=== PATIENT | female | born 2000 | race Caucasian/White ===

== ENCOUNTER 2022-04-22 21:16 | Inpatient (IN) | payer BC ==
[2022-04-22] MEDS ORDERED: Ketorolac Tromethamine 30 MG/ML VIAL ONE (21:58)
[2022-04-22] MEDS ORDERED: Morphine 4 MG/ML VIAL ONE (21:58)
[2022-04-22] MEDS ORDERED: Ondansetron PF 4 MG/2 ML Vial ONE (21:59)
[2022-04-22 22:13] LABS: Bilirubin Neg (Negative); Blood, Urine 50 (Negative); Clarity Cloudy (Clear); Glucose, Urine (Dipstick) Normal (Negative); Ketone, Urine 15 mg/dL (Negative); Leukocyte 100 (Negative); Nitrite Negative (Negative); Protein, Urine (Dipstick) Negative (Neg-Trace); Specific Gravity, Urine 1.015 (1.005-1.030); Urobilinogen Normal mg/dL (Less than 2)
[2022-04-22 22:24] LABS: Bacteria/HPF 2+ HPF (None Seen); RBC/HPF 21-50 HPF (0-3); Renal Epithelial 0-3 HPF (None Seen)
[2022-04-22] MEDS ORDERED: Guaifenesin DM 100-10/5 ML UDCUP PO PRN (23:08)
[2022-04-22] MEDS ORDERED: Acetaminophen 325 MG TAB PO PRN (23:08)
[2022-04-22] MEDS ORDERED: Calcium Carbonate 500 MG ChewTAB PO PRN (23:08)
[2022-04-22] MEDS ORDERED: Zolpidem Tartrate 5 MG TAB PO PRN (23:08)
[2022-04-22] MEDS ORDERED: Senokot S 8.6-50 MG TAB PO PRN (23:08)
[2022-04-22] MEDS ORDERED: HYDROcodone/Acetaminophen 5/325 mg Tablet PO PRN (23:08)
[2022-04-22 23:29] LABS: Anion Gap 12 mmol/L (10-20); BUN (Urea Nitrogen) 11 mg/dL (7.0-18.7); Calc. Creatinine Clearance 0 mL/min (70-130); Calcium 8.8 mg/dL (7.8-10.44); Carbon Dioxide 23 mmol/L (22-29); Chloride 105 mmol/L (98-107); Estimated GFR 91; Glucose 89 mg/dL (70-105); Potassium 3.7 mmol/L (3.5-5.1); Sodium 136 mmol/L (136-145)
[2022-04-23 01:22] VITALS: BMI 25.7
[2022-04-23] MEDS ORDERED: Potassium Chloride 20 MEQ TAB PO SCH (01:30)
[2022-04-23] MEDS ORDERED: Famotidine/PF 20 mg/2ml Vial SLOW IVP SCH ×2 (01:30→09:00)
[2022-04-23] MEDS ORDERED: Lactated Ringer's 1,000 ML IV SCH (01:30)
[2022-04-23] MEDS ORDERED: Potassium Bicarbonate/Cit Ac 20 MEQ TAB PO SCH (02:00)
[2022-04-23] MEDS: Lactated Ringer's 1,000 ML IV SCH ×4 (02:12→20:50)
[2022-04-23 03:09] LABS: SARS-CoV-2 NAA Rapid Test Not Detected (NotDetected)
[2022-04-23] MEDS: Morphine 2 MG/ML VIAL SLOW IVP PRN ×3 (04:31→20:42)
[2022-04-23] MEDS: Ondansetron PF 4 MG/2 ML Vial IVP PRN ×3 (04:42→22:24)
[2022-04-23 05:06] LABS: #Eosinphils 0.1 10x3/uL (0.0-0.5); #Monocytes 0.7 10x3/uL (0.0-1.1); #Neutrophils 3.8 10x3/uL (1.5-8.4); %Basophils 0.3 % (0.0-2.0); %Eosinophils 1.3 % (0.0-6.0); %Lymphocytes 23.6 % (18.0-47.0); %Monocytes 10.9 % (0.0-10.0); %Neutrophils 63.6 % (40.0-75.0); Hemoglobin 11.5 g/dL (12.0-15.5); Mean Corpuscular HGB CONC 34.5 g/dL (32.0-36.0); Mean Corpuscular Hemoglobin 30.2 pg (27.0-33.0); Mean Corpuscular Volume 87.4 fl (81.6-98.3); Mean Platelet Volume 10.7 fl (7.4-10.4); Platelet Count 153 10x3/uL (150-450); Red Blood Cell (RBC) Count 3.81 10x6/uL (3.90-5.03); White Blood Cell (WBC) Count 6.1 10x3/uL (3.5-10.5)
[2022-04-23 05:18] LABS: Anion Gap 10 mmol/L (10-20); BUN (Urea Nitrogen) 9 mg/dL (7.0-18.7); Calc. Creatinine Clearance 110 mL/min (70-130); Calcium 8.6 mg/dL (7.8-10.44); Carbon Dioxide 26 mmol/L (22-29); Chloride 107 mmol/L (98-107); Estimated GFR 96; Glucose 83 mg/dL (70-105); Potassium 4.1 mmol/L (3.5-5.1); Sodium 139 mmol/L (136-145)
[2022-04-23 05:32] LABS: Thyroid Stimulating Hormone 2.9524 uIU/mL (0.35-4.94)
[2022-04-23] MEDS: Ketorolac Tromethamine 30 MG/ML VIAL IVP SCH ×2 (06:55→12:28)
[2022-04-23] MEDS: Famotidine/PF 20 mg/2ml Vial SLOW IVP SCH ×2 (09:01→20:44)
[2022-04-23 11:25] LABS: Vitamin D, 25 Hydroxy 17.6 ng/ml (> 30.0)
[2022-04-23] MEDS ORDERED: Tamsulosin HCl 0.4 MG CAP PO SCH (11:45)
[2022-04-24] MEDS: Morphine 4 MG/ML VIAL SLOW IVP PRN ×2 (00:52→04:50)
[2022-04-24] MEDS ORDERED: Iopamidol 15 ML ONE (07:40)
[2022-04-24] MEDS ORDERED: Dexmedetomidine 200 MCG/2 ML VIAL ONE (07:44)
[2022-04-24] MEDS ORDERED: Phenylephrine 10 MG/ML VIAL ONE (07:44)
[2022-04-24] MEDS ORDERED: PROPOFOL 20 ML ONE ×2 (07:46→08:52)
[2022-04-24] MEDS ORDERED: Fentanyl 100 MCG/2 ML VIAL ONE (07:46)
[2022-04-24] MEDS ORDERED: Ondansetron PF 4 MG/2 ML Vial ONE (07:56)
[2022-04-24] MEDS ORDERED: Dexamethasone 4 mg/ml Vial ONE (07:56)
[2022-04-24] MEDS ORDERED: ePHEDrine Sulfate 50 MG/10 ML VIAL ONE (08:46)
[2022-04-24] MEDS ORDERED: Tamsulosin HCl 0.4 MG CAP PO SCH (09:00)
[2022-04-24] MEDS ORDERED: Ketorolac Tromethamine 30 MG/ML VIAL ONE (09:05)
[2022-04-24] MEDS ORDERED: PHENYLEPHRINE-NS 100 MCG/ML 10 ML SYRINGE ONE (09:12)
[2022-04-24 11:15] VITALS: BP 127/83; TEMP 98.2
[2022-04-24] MEDS: Famotidine/PF 20 mg/2ml Vial SLOW IVP SCH (12:02)
== END 2022-04-24 13:49 | disposition home or self-care (01) | DRG 660 ==
LOC: CSHERS 21:16 → CSHTELE 23:08 → UNDOADMOB 04-23 01:06 → OBSVTOIN 04-24 12:18
PROVIDERS: ADMIT Student in an Organized Health Care Education/Training Program; ATTEND Internal Medicine
PROC: 0T768DZ Dilation of Right Ureter with Intraluminal Device, Via Natural or Artificial Opening Endoscopic (ICD-10-PCS; principal; 2022-04-24)
PROC: 0TC68ZZ Extirpation of Matter from Right Ureter, Via Natural or Artificial Opening Endoscopic (ICD-10-PCS; 2022-04-24)
PROC: BT1D1ZZ Fluoroscopy of Right Kidney, Ureter and Bladder using Low Osmolar Contrast (ICD-10-PCS; 2022-04-24)
DX: N13.2 Hydronephrosis with renal and ureteral calculous obstruction (principal); Q87.3 Congenital malformation syndromes involving early overgrowth; R10.9 Unspecified abdominal pain; N29 Other disorders of kidney and ureter in diseases classified elsewhere; E55.9 Vitamin D deficiency, unspecified; Z88.8 Allergy status to other drugs, medicaments and biological substances; Z98.890 Other specified postprocedural states; Z20.822 Contact with and (suspected) exposure to COVID-19
CPT/HCPCS: 51600; 74018; 74176; 74430; 80048; 80053; 81003; 81015; 82306; 82365; 83970; 84443; 84703; 85025; 87077; 87086; 87186; 88300; 96374; 96375; 96376; C1769; C2617; G0378; J1100; J1885; J1956; J2270; J2370; J2405; J2704; J3010; J7120; Q9967; S0028; U0002